=== PATIENT | male | born 1990 | race Caucasian/White ===

== ENCOUNTER 2020-09-10 08:07 | Emergency (ER) | payer SELFPAY ==
[2020-09-10] VITALS (8 sets, daily range): BP systolic 145–153; BP diastolic 99–112; PULSE 91–104; RESP 17–24; TEMP 36.2; O2SAT 94–96
--- NOTE | ~2020-09-10 | XR_ITS ---
EXAMINATION: XR chest 2V DATE: 09/10/2020 08:31 INDICATION: Shortness of breath TECHNIQUE: PA and lateral views of the chest are obtained. COMPARISON: 02/02/2014 FINDINGS: The lungs are free of acute opacities. There is no pleural effusion or pneumothorax. The ca rdiomediastinal silhouette is normal. The visualized bones and soft tissues are unremarkable. IMPRESSION: 1. No acute cardiopulmonary abnormality. Reviewed, dictated and finalized at location A.
--- NOTE | 2020-09-10 08:20 | ECG_ITS ---
Measurements Intervals [place] Rate: 100 P: 25 [place]: 157 QRS: -27 QRSD: 91 T: 27 QT: 322 QTc: 416 Interpretive Statements SINUS TACHYCARDIA DELAYED PRECORDIAL R/S TRANSITION BORDERLINE ECG Electronically Signed On 09-10-2020 16:03:43 CDT by Jack Deleon D.O.
--- NOTE | 2020-09-10 08:22 | ED.SOB ---
HPI - SOB/Dyspnea General Chief Complaint: Asthma Stated Complaint: asthma attack Time Seen by Provider: 09/10/20 08:13 Source: patient and RN notes reviewed Mode of arrival: ambulatory Limitations: no limitations History of Present Illness HPI Narrative: This is a 30 year old male with history of asthma who presents for evaluation of shortness of breath. He states he woke up last night with shortness of breath. He used his albuterol inhaler, and he states it helped for a short period. He states he is not really all that short of breath currently but he feels not completely normal. He reports cough with clear sputum that he assumes is due to seasonal changes. He denies chest pain, fever, sore throat. He also denies sick contacts, and he has been vaccinated for covid. He denies legs swelling or calf pain. Related Data Home Medications Medication Instructions Recorded Confirmed albuterol sulfate INHALATION 09/10/20 Allergies Allergy/AdvReac Type Severity Reaction Status Date / Time No Known Allergies Allergy Unknown Unverified 09/10/20 08:15 Review of Systems Review of Systems: All systems reviewed & are unremarkable except as noted in HPI and below Constitutional: Constitutional: Denies chills and Denies fever(s) ENT: Reports nasal congestion and Denies sore throat Cardiovascular: Cardiovascular: Denies chest pain Respiratory: Respiratory: Reports cough and Reports dyspnea Gastrointestinal: Gastrointestinal: Denies abdominal pain, Reports nausea and Reports vomiting PMFSH Past Medical History Medical History (Updated 09/10/20 @ 11:10 by Adrienne Bender MD) Asthma Family History Family History (Updated 09/23/15 @ 23:19 by DOCTOR UNKNOWN) Father Hypertension Family history of diabetes mellitus in first degree relative Family history of heart disease in male family member before age 55 Grandparent Hypertension Family history of malignant neoplasm of brain Family history of type 1 diabetes mellitus Family history of heart disease in male family member before age 55 Diabetes mellitus Mother Family history of malignant neoplasm of ovary Social History Social History Smoking status: Never smoker Second hand tobacco smoke exposure: Yes Alcohol intake: current Exam Const: General: no acute distress and alert Nutritional Appearance: obese Orientation/consciousness: patient oriented x3 Eyes: EOM: EOMs intact bilaterally Resp: Effort & Inspection: normal respiratory effort and no retractions Auscultation: clear to auscultation bilaterally Cardio: Rate: tachycardic Rhythm: regular rhythm Heart sounds: no murmurs GI: GI Palp: Yes Soft to palpation, No Tenderness to palpation present (GI) and No Guarding due to palpation present (GI) Auscultation: normal bowel sounds Skin: General skin exam: normal color Rashes: no rashes Neuro: General: patient oriented x3, moves all extremities and CN's II-XI intact bilaterally Psych: Mental Status: mental status grossly normal Affect: normal affect Course Reevaluation(s) Reevaluation #1: Patient states he feels better after neb treatment. Labs and chest xray are unremarkable. His blood pressure is elevated. He states that his BP is often elevated when in ER due to anxiety. He states he does not have diagnosis of hypertension and his doctor checks it when he goes in . He understands he will need to follow up with primary care provider for BP recheck. Date: 09/10/20 Time: 11:03 Vital Signs Vital signs: Vital Signs Pulse Rate 104 H 09/10/20 08:12 Respiratory Rate 20 09/10/20 08:12 Blood Pressure 145/112 H 09/10/20 08:12 Pulse Oximetry 94 09/10/20 08:12 Temperature 97.1 F L 09/10/20 08:23 Pulse Rate 94 09/10/20 11:19 Respiratory Rate 17 09/10/20 11:19 Blood Pressure 153/99 H 09/10/20 11:19 Pulse Oximetry 96 09/10/20 11:19 MDM - SOB/Dyspnea Lab Data Attestation: I reviewed the peggy
[2020-09-10 08:45] LABS: Base Excess ABG 1.5 mEq/l (+/-2.0); Carboxyhemoglobin 1.3 % THb (0-2.0); Device ROOM AIR; Fractional Inspired Oxygen 21 %; HCO3 ABG 26.2 mEq/l (22.0-26.0); Methemoglobin ABG 0.6 %THb (0-1.5); Modified Allen's Test Pass; Oxygen Content ABG 19.2 %vol (16.0-22.0); Oxygen Saturation ABG 95.1 % (95.0-100.0); Oxyhemoglobin 93.6 % THb (90.0-100.0); PCO2 ABG 41.6 mmHg (35.0-45.0); PO2 ABG 73.9 mmHg (80.0-100.0); PO2 FiO2 Ratio Arterial Blood 3.52 %; Reduced Hemoglobin 4.5 %THb (0-5.0); Site Drawn RIGHT RADIAL; Total Hemoglobin 14.6 g/dL (12.0-18.0); pH ABG 7.417 (7.350-7.450)
[2020-09-10 09:22] LABS: Basophils Absolute Auto 0.1 K/mm3 (0.0-0.1); Basophils Percent Auto 0.8 % (0.2-1.2); Eosinophils Absolute Auto 0.1 K/mm3 (0-0.3); Eosinophils Percent Auto 1.1 % (0-4.4); Hematocrit 42.9 % (42.0-52.0); Hemoglobin 13.6 g/dL (14.0-18.0); Immature Granulocyte Absolute 0.18 K/mm3 (0.00-0.031); Immature Granulocyte Percent A 1.5 % (0-0.5); Lymphocytes Absolute Auto 2.58 K/mm3 (0.9-3.2); Mean Corpuscular HGB Conc 31.7 g/dl (32-36); Mean Corpuscular Hemoglobin 27.4 pg (26-34); Mean Corpuscular Volume 86.5 fl (80-100); Mean Platelet Volume 10.8 fl (7.4-10.4); Monocytes Absolute Auto 0.9 K/mm3 (0.1-0.6); Monocytes Percent Auto 7.5 % (2.6-8.5); Neutrophils Absolute Auto 8.4 K/mm3 (1.3-6.7); Neutrophils Percent Auto 68.1 % (45.5-73.1); Platelet Count Result 341 k/mm3 (150-375); Red Blood Count 4.96 M/mm3 (4.6-6.20); White Blood Count 12.3 K/mm3 (4.5-10.0)
[2020-09-10 09:30] LABS: Alanine Aminotransferase 17 U/L (4-50); Albumin Level 4.1 g/dL (3.5-5.1); Alkaline Phosphatase 82 U/L (38-126); Anion Gap 9 mmol/L (8-16); Aspartate Amino Transferase 23 U/L (17-59); Bilirubin,Total 0.5 mg/dL (0.2-1.3); Blood Urea Nitrogen 10 mg/dL (9-20); CRP 2.3 mg/dL (<1.0); Calcium 9.2 mg/dL (8.4-10.2); Carbon Dioxide 25 mmol/L (22-30); Chloride 102 mmol/L (98-107); Estimated CRCL calculation 159 ml/min; Estimated Glomerular Filt Rate > 60; Glucose 101 mg/dL (65-110); Sodium 136 mmol/L (137-145)
[2020-09-10 09:31] LABS: D Dimer < 0.22 ug/mL (<0.48)
[2020-09-10 09:36] LABS: NT Pro B Type Natriuretic Pept 80 pg/mL (5-100)
[2020-09-10] MEDS: IPRATROPIUM BR 0.02% INH SOLN 0.5 MG/2.5 ML VIAL INHALATION (10:27)
[2020-09-10] MEDS: ALBUTEROL SULFATE NEB 2.5 MG/0.5 ML INH 5 MG INHALATION (10:28)
== END 2020-09-10 11:19 | disposition home or self-care (01) ==
PROVIDERS: Emergency Provider General Practice
DX: J45.901 Unspecified asthma with (acute) exacerbation (principal); D72.829 Elevated white blood cell count, unspecified; R03.0 Elevated blood-pressure reading, without diagnosis of hypertension; R00.0 Tachycardia, unspecified
CPT/HCPCS: 36415; 36600; 71046; 80053; 82375; 82805; 83050; 83880; 85025; 85380; 86140; 93005; 94640; 99284

== ENCOUNTER 2021-02-09 08:21 | Emergency (ER) | payer SELFPAY ==
--- NOTE | ~2021-02-09 | XR_ITS ---
EXAMINATION: XR chest 2V DATE: 02/09/2021 08:57 INDICATION: Shortness of breath TECHNIQUE: PA and lateral views of the chest are obtained. COMPARISON: 09/10/2020 FINDINGS: The lungs are free of acute opacities. There is no pleural effusion or pneumothorax. The ca rdiomediastinal silhouette is normal. There is mild thoracic spondylosis. IMPRESSION: 1. No acute cardiopulmonary abnormality. Reviewed, dictated and finalized at location A. SCI[employer]
[2021-02-09 08:28] VITALS: BP 144/101; PULSE 101; RESP 16; TEMP 36; O2SAT 97
--- NOTE | 2021-02-09 09:21 | ED.GENADULT ---
HPI - General Adult General Chief complaint: Asthma Stated complaint: asthma Time Seen by Provider: 02/09/21 08:27 History of Present Illness HPI narrative: Patient is a 30-year-old male with history of asthma who presents ER with shortness of breath. Reports he has had increased need to use his albuterol over the last day. No fevers or chills or sweats. No productive cough but he is coughing. He is vaccine against Covid. No loss of taste or smell. Denies fevers or chills or sweats. Patient is without hemoptysis or lower extremity swelling. Related Data Allergies Allergy/AdvReac Type Severity Reaction Status Date / Time No Known Allergies Allergy Unknown Unverified 02/09/21 08:31 Review of Systems Review of Systems: All systems reviewed & are unremarkable except as noted in HPI and below Constitutional: Constitutional: Denies chills, Denies fever(s) and Denies weakness ENT: Denies nasal congestion and Denies sore throat Cardiovascular: Cardiovascular: Denies chest pain, Denies rapid heart rate and Denies radiating jaw, neck or arm pain Respiratory: Respiratory: Denies chest congestion, Reports cough, Reports dyspnea and Denies wheezing PMFSH Past Medical History Medical History (Updated 02/09/21 @ 09:23 by Rajiv Ayon MD) Asthma Surgical History Surgical History (Updated 02/09/21 @ 09:22 by Rajiv Ayon MD) No pertinent past surgical history Family History Family History (Updated 09/23/15 @ 23:19 by DOCTOR UNKNOWN) Father Hypertension Family history of diabetes mellitus in first degree relative Family history of heart disease in male family member before age 55 Grandparent Hypertension Family history of malignant neoplasm of brain Family history of type 1 diabetes mellitus Family history of heart disease in male family member before age 55 Diabetes mellitus Mother Family history of malignant neoplasm of ovary Social History Social History Smoking status: Never smoker Second hand tobacco smoke exposure: Yes Alcohol intake: current Exam Narrative: GENERAL: Well-appearing, obese, and in no acute distress. HEAD: Normocephalic, atraumatic. EYES: PERRL and EOMI. ENT: Mucous membranes moist. Uvula midline, normal-appearing posterior oropharynx. CHEST: Clear to auscultation. No respiratory distress. Speaks without distress. Good air movement and lungs bilaterally. HEART: Regular rate and rhythm. Normal peripheral pulses. EXTREMITIES: Normal range of motion. No edema. NEURO: Alert and oriented x3. PSYCH: Normal mood and affect. Course Course Emergency Course: No pneumonia. No wheezing on exam. Due to increased albuterol use will start patient on steroids. Discussed treatment plan with patient and he verbalized understanding. Vital Signs Vital signs: Vital Signs Temperature 96.8 F L 02/09/21 08:28 Pulse Rate 101 H 02/09/21 08:28 Respiratory Rate 16 02/09/21 08:28 Blood Pressure 144/101 H 02/09/21 08:28 Pulse Oximetry 97 02/09/21 08:28 Temperature 96.8 F L 02/09/21 08:28 Pulse Rate 101 H 02/09/21 08:28 Respiratory Rate 16 02/09/21 08:28 Blood Pressure 144/101 H 02/09/21 08:28 Pulse Oximetry 97 02/09/21 08:28 Medical Decision Making Vital Signs Vital Signs: Vital Signs Temperature 96.8 F L 02/09/21 08:28 Pulse Rate 101 H 02/09/21 08:28 Respiratory Rate 16 02/09/21 08:28 Blood Pressure 144/101 H 02/09/21 08:28 Pulse Oximetry 97 02/09/21 08:28 Temperature 96.8 F L 02/09/21 08:28 Pulse Rate 101 H 02/09/21 08:28 Respiratory Rate 16 02/09/21 08:28 Blood Pressure 144/101 H 02/09/21 08:28 Pulse Oximetry 97 02/09/21 08:28 Imaging Data Radiologist's impression: ITS Impressions Chest X-Ray 02/09/21 09:00 IMPRESSION: 1. No acute cardiopulmonary abnormality. Discharge Plan Discharge Clinical Impression: Asthma with acute exacerbation Patient Disposition: Home, Se
[2021-02-09 09:45] VITALS: BP 150/98; PULSE 80; RESP 20; O2SAT 97
== END 2021-02-09 09:45 | disposition home or self-care (01) ==
PROVIDERS: Emergency Provider Emergency Medicine
DX: J45.901 Unspecified asthma with (acute) exacerbation (principal)
CPT/HCPCS: 71046; 99283

== ENCOUNTER 2022-02-04 09:55 | Emergency (ER) | payer SELFPAY ==
[2022-02-04] VITALS (7 sets, daily range): BP systolic 159–178; BP diastolic 100–110; PULSE 86–100; RESP 16–20; TEMP 36.5; O2SAT 95–97
--- NOTE | ~2022-02-04 | XR_ITS ---
EXAMINATION: XR chest 2V DATE: 02/04/2022 11:09 INDICATION: Shortness of breath. TECHNIQUE: Frontal and lateral views of the chest were obtained. COMPARISON: Chest 2 views 02/09/2021 FINDINGS: There is no pneumonia, pleural effusion, or pneumothorax. The heart size is normal. IMPRESSION: 1. No acute cardiopulmonary disease. Reviewed, dictated and finalized at location A. VARNISHER
--- NOTE | 2022-02-04 10:58 | ED.ASTHMA ---
HPI - Asthma General Chief Complaint: Asthma Stated Complaint: BREATHING DIFF Time Seen by Provider: 02/04/22 10:54 History of Present Illness HPI Narrative: 31-year-old male history of asthma presents to the emergency room stating if he is having an asthma attack. Patient states he typically uses his rescue inhaler once a month, but has used it twice yesterday and once this morning. States that he was experiencing some shortness of breath difficulty breathing, which resolved after using his rescue inhaler. Patient denies any chest pain, fever or productive cough. Related Data Allergies Allergy/AdvReac Type Severity Reaction Status Date / Time No Known Allergies Allergy Unknown Unverified 02/04/22 10:55 Review of Systems Review of Systems: CONSTITUTIONAL: Denies fever, chills, or sweats. EYES: Denies visual changes, redness, or discharge. ENT: Denies rhinorrhea, congestion, sore throat, or otalgia. CARDIOVASCULAR: Denies chest pain, palpitations, or edema. RESPIRATORY: Reports cough or dyspnea. GASTROINTESTINAL: Denies abdominal pain, nausea, vomiting, or diarrhea. GENITOURINARY: Denies dysuria or hematuria. SKIN: Denies rash or itching. MUSCULOSKELETAL: Denies back pain, joint pain, or myalgia. NEUROLOGIC: Denies headache, numbness, dizziness, or weakness. PSYCHIATRIC: Denies anxiety or depression. PMFSH Past Medical History Medical History Asthma Surgical History Surgical History No pertinent past surgical history Family History Family History Father Hypertension Family history of diabetes mellitus in first degree relative Family history of heart disease in male family member before age 55 Grandparent Hypertension Family history of malignant neoplasm of brain Family history of type 1 diabetes mellitus Family history of heart disease in male family member before age 55 Diabetes mellitus Mother Family history of malignant neoplasm of ovary Social History Social History Smoking status: Never smoker Second hand tobacco smoke exposure: Yes Alcohol intake: current Exam Narrative: GENERAL: Well-appearing, well-nourished, no physical limitations, and in no acute distress. HEAD: Normocephalic, atraumatic. EYES: Conjunctivae normal, PERRLA and EOMI. CHEST: Clear to auscultation. No respiratory distress. No wheezes rales or rhonchi. HEART: Regular rate and rhythm. No murmur heard. Normal peripheral pulses. ABDOMEN: Soft, nontender, morbidly obese, nondistended, normal active bowel sounds. EXTREMITIES: Normal range of motion. No edema. No clubbing or cyanosis SKIN: Warm, dry, no rash. No noted wounds NEURO: No focal deficits. Alert and oriented x3. MAEW. CN's II-XI intact bilaterally, normal gait PSYCH: Cooperative. Normal mood and affect. Course Vital Signs Vital signs: Vital Signs Temperature 36.5 C 02/04/22 10:14 Pulse Rate 100 02/04/22 10:14 Respiratory Rate 16 02/04/22 10:14 Blood Pressure 159/105 H 02/04/22 10:14 Pulse Oximetry 95 02/04/22 10:14 Temperature 36.5 C 02/04/22 10:14 Pulse Rate 93 02/04/22 11:22 Respiratory Rate 16 02/04/22 11:22 Blood Pressure 178/110 H 02/04/22 10:56 Pulse Oximetry 97 02/04/22 10:56 Oxygen Delivery Room Air 02/04/22 10:53 MDM - Asthma MDM Narrative Medical decision making narrative: 31-year-old presented with shortness of breath most likely secondary to asthma exacerbation. Presentation was not consistent with a cardiac etiology, CHF. Patient was given a breathing treatment and responded well. Chest x-ray shows no evidence of cardiopulmonary abnormality. Patient will be sent home with a short course of prednisone. Imaging Data Radiologist's impression: Impressions Chest X-Ray
[2022-02-04] MEDS: IPRATROPIUM BR 0.02% INH SOLN 0.5 MG/2.5 ML VIAL INHALATION (11:09)
[2022-02-04] MEDS: ALBUTEROL SULFATE NEB 2.5 MG/3 ML INH INHALATION (11:09)
== END 2022-02-04 11:57 | disposition home or self-care (01) ==
PROVIDERS: Emergency Provider Nurse Practitioner Family
DX: J45.901 Unspecified asthma with (acute) exacerbation (principal)
CPT/HCPCS: 71046; 94640; 96372; 99283; J1100

== ENCOUNTER 2023-02-12 06:17 | Emergency (ER) | payer OTHER, SELFPAY ==
[2023-02-12] VITALS (7 sets, daily range): BP systolic 121–178; BP diastolic 80–96; PULSE 74–101; RESP 14–48; TEMP 36.4; O2SAT 97–100
--- NOTE | ~2023-02-12 | XR_ITS ---
EXAMINATION: XR chest 2V DATE: 02/12/2023 08:43 INDICATION: Shortness of breath TECHNIQUE: PA and lateral views of the chest are obtained. COMPARISON: 02/04/2022 FINDINGS: The lungs are free of acute opacities. No pleural effusion or pneumothorax. The cardiomedia stinal silhouette is normal. The visualized bones and soft tissues are unremarkable. IMPRESSION: 1. No acute cardiopulmonary abnormality. Reviewed, dictated and finalized at location L. [employer]
--- NOTE | 2023-02-12 08:15 | ECG_ITS ---
Measurements Intervals [place] Rate: 86 P: 39 [place]: 160 QRS: -18 QRSD: 93 T: 43 QT: 341 QTc: 410 Interpretive Statements SINUS RHYTHM COMPARED TO ECG 09/10/2020 08:38:36 SINUS RHYTHM NOW PRESENT Electronically Signed On 02-12-2023 13:53:32 ENVIRONMENTAL COMPLIANCE ENGINEER by Rossi Ivy M.D.
[2023-02-12 08:34] LABS: Basophils Absolute Auto 0.1 K/mm3 (0.0-0.1); Basophils Percent Auto 0.6 % (0.2-1.2); Eosinophils Absolute Auto 0.1 K/mm3 (0-0.3); Eosinophils Percent Auto 0.6 % (0-4.4); Hematocrit 42.2 % (42.0-52.0); Hemoglobin 13.1 g/dL (14.0-18.0); Immature Granulocyte Absolute 0.11 K/mm3 (0.00-0.031); Immature Granulocyte Percent A 0.8 % (0-0.5); Lymphocytes Absolute Auto 2.74 K/mm3 (0.9-3.2); Mean Corpuscular Hemoglobin 26.5 pg (26-34); Mean Corpuscular Volume 85.3 fl (80-100); Mean Platelet Volume 9.7 fl (7.4-10.4); Monocytes Absolute Auto 1.1 K/mm3 (0.1-0.6); Monocytes Percent Auto 7.7 % (2.6-8.5); Neutrophils Absolute Auto 10.3 K/mm3 (1.3-6.7); Neutrophils Percent Auto 71.3 % (45.5-73.1); Platelet Count Result 348 k/mm3 (150-375); Red Blood Count 4.95 M/mm3 (4.6-6.20); Red Cell Distribution Width 14.6 % (11.5-14.5); White Blood Count 14.4 K/mm3 (4.5-10.0)
[2023-02-12 08:45] LABS: Alanine Aminotransferase 18 U/L (6-50); Albumin Level 3.9 g/dL (3.5-5.1); Alkaline Phosphatase 67 U/L (38-126); Anion Gap 5 mmol/L (8-16); Aspartate Amino Transferase 16 U/L (17-59); Bilirubin,Total 0.4 mg/dL (0.2-1.3); Blood Urea Nitrogen 14 mg/dL (9-20); Carbon Dioxide 26 mmol/L (22-30); Chloride 105 mmol/L (98-107); Estimated CRCL calculation 165 ml/min; Estimated Glomerular Filt Rate > 60; Glucose 94 mg/dL (65-110); Potassium 4.2 mmol/L (3.4-5.0); Sodium 136 mmol/L (137-145)
--- NOTE | 2023-02-12 09:41 | ED.SOB ---
HPI - SOB/Dyspnea General Chief Complaint: Shortness of Breath/Dyspnea Stated Complaint: SOB Time Seen by Provider: 02/12/23 08:30 Source: patient Limitations: no limitations History of Present Illness HPI Narrative: Patient is a 32-year-old male presents to the emergency department complaining of shortness of breath. Patient states he has a history of and has had frequent flare-ups in the past and never has required intubation or ICU admission and notes his last steroids were approximately 1 month ago. Patient states the difficulty breathing started around 9 or 10:00 p.m. last night he took a nebulizer breathing treatment and helped and went to bed and then woke up again at 2:00 a.m. feeling short of breath and took another nebulizer treatment which helped with the headache and return prompting to come in for further evaluation. Patient denies any cough, fever, chest pain, abdominal pain, bloody bowel movements, recent injuries, recent illness, new exposures to allergens, URI symptoms. Patient admits to using controller inhaler daily and also sees a product mgr. Patient denies any history of blood clots. Related Data Allergies Allergy/AdvReac Type Severity Reaction Status Date / Time No Known Allergies Allergy Unknown Verified 02/12/23 08:17 Review of Systems Review of Systems: A 10 system review of systems was completed on the patient and is negative except for what is stated in the HPI. Nursing and ancillary documentation was reviewed. [facility] Past Medical History Medical History Asthma Surgical History Surgical History No pertinent past surgical history Family History Family History Father Hypertension Family history of diabetes mellitus in first degree relative Family history of heart disease in male family member before age 55 Grandparent Hypertension Family history of malignant neoplasm of brain Family history of type 1 diabetes mellitus Family history of heart disease in male family member before age 55 Diabetes mellitus Mother Family history of malignant neoplasm of ovary Social History Social History Smoking status: Never smoker Second hand tobacco smoke exposure: Yes Alcohol intake: current Comments At time of signature, I have reviewed and agree with nursing past medical, surgical, social and family history unless otherwise noted. Please see the nursing chart for further information. There is no relevant family history pertinent to the presenting complaint. Exam Narrative: CONST: No acute distress. Well nourished. HENMT: Head is normocephalic and atraumatic. Moist mucous membranes. No posterior oropharynx erythema. EYES: No conjunctival icterus, injection, or pallor. PERRL. NECK: No meningeal signs. RESP: Able to speak in full sentences. Normal respiratory effort. Bilateral end-expiratory wheezing diffusely with a mild prolonged expiratory phase. No focal adventitious breath sounds. No respiratory distress. CARDIO: Regular rate. Regular rhythm. 2+ DP and radial pulses bilaterally. GI: Nondistended. No tenderness to palpation. Soft. : No CVA tenderness to palpation. SKIN: No rashes or lesions noted on exposed skin. NEURO: Oriented x3. Moves all extremities. EXTREM/MSK/BACK: No pedal edema. PSYCH: Normal affect. Course Vital Signs Vital signs: Vital Signs Temperature 97.6 F 02/12/23 06:19 Pulse Rate 98 02/12/23 06:19 Respiratory Rate 20 02/12/23 06:19 Blood Pressure 178/96 H 02/12/23 06:19 Pulse Oximetry 99 02/12/23 06:19 Oxygen Delivery Room Air 02/12/23 06:19 Temperature 97.6 F 02/12/23 06:19 Pulse Rate 78 02/12/23 10:06 Respiratory Rate 14 02/12/23 10:06 Blood Pressure 146/93 H 02/12/23 09:59 Pu
[2023-02-12] MEDS: ALBUTEROL SULFATE NEB 2.5 MG/3 ML INH INHALATION (09:53)
[2023-02-12] MEDS: IPRATROPIUM BR 0.02% INH SOLN 0.5 MG/2.5 ML VIAL INHALATION (09:54)
[2023-02-12] MEDS: methylPREDNISolone SOD SUCC 40 MG VIAL IV PUSH (09:59)
== END 2023-02-12 10:47 | disposition home or self-care (01) ==
PROVIDERS: Emergency Provider Student in an Organized Health Care Education/Training Program
DX: J45.901 Unspecified asthma with (acute) exacerbation (principal)
CPT/HCPCS: 36415; 71046; 80053; 85025; 93005; 94640; 96374; 99284; J2920